=== PATIENT | female | born 1960 | race African-American/Black ===

== ENCOUNTER 2017-06-24 14:29 | Day surgery (SDC) | payer BC, MEDICAID ==
[2017-06-24] MEDS ORDERED: FENTAnyl 50 MCG/ML VIAL (16:06)
[2017-06-24] MEDS ORDERED: MIDAZOLAM 1 MG/ML 2 ML INJ ×2 (16:06)
== END 2017-06-24 16:45 | disposition home or self-care (01) ==
LOC: GIL 14:29
DX: Z12.11 Encounter for screening for malignant neoplasm of colon (principal); K64.8 Other hemorrhoids
CPT/HCPCS: 45378